=== PATIENT | female | born 1985 | race American Indian/Alaskan Native ===

== ENCOUNTER 2021-12-30 23:05 | Emergency (ER) | payer MEDICAID ==
[~2021-12-30] VITALS: Ht 165.1 cm; Wt 83.0 kg
[2021-12-31 01:18] LABS: Basophils # (auto) 0.1 10 ^3/uL (0-0.2); Basophils % (auto) 1.1 % (0.0-2.0); Eosinophils # (auto) 0.1 10 ^3/uL (0-0.8); Eosinophils % (auto) 1.6 % (0.0-7.0); Hematocrit 35.4 % (36.0-46.0); Hemoglobin 11.7 g/dL (12.2-16.2); Lymphocytes # (auto) 2.2 10 ^3/uL (0.4-5.4); Mean Corpuscular Hemoglobin 26.2 pg (28.0-32.0); Mean Corpuscular Hgb Conc. 32.9 g/dL (32.0-36.0); Mean Corpuscular Volume 79.5 fL (80.0-100.0); Monocytes # (auto) 0.5 10 ^3/uL (0-1.3); Monocytes % (auto) 7.3 % (0.0-12.0); Neutrophils # (auto) 4.3 10 ^3/uL (1.6-8.6); Nucleated Red Blood Cells % 0.1 %; Red Blood Cells 4.45 10^6/uL (4.0-5.20); Red Cell Distribution Width 17.1 % (11.8-14.3); White Blood Cell 7.2 10^3/uL (4.4-10.8)
[2021-12-31 01:29] LABS: INR 1.05 (0.9-1.15); Partial Thromboplastin Time 29.2 sec (23.6-33.0)
[2021-12-31 01:35] LABS: Calcium 8.4 mg/dL (8.5-10.1); Potassium 3.8 mmol/L (3.5-5.1)
[2021-12-31 01:39] LABS: Albumin 3.8 g/dL (3.4-5.0); BUN/Creatinine Ratio 15.1
[2021-12-31 01:41] LABS: Bilirubin, Total 0.6 mg/dL (0.2-1.0)
[2021-12-31 03:16] VITALS: BP 101/60
== END 2021-12-31 16:22 | disposition home or self-care (01) ==
LOC: ER 23:05
DX: R00.2 Palpitations (principal); R07.89 Other chest pain; Z20.822 Contact with and (suspected) exposure to COVID-19
CPT/HCPCS: 36415; 71045; 80053; 83735; 83880; 84443; 84484; 84702; 85025; 85379; 85610; 85730; 93005

== ENCOUNTER 2024-02-13 19:25 | Inpatient (IN) | payer MEDICAID ==
[~2024-02-13] VITALS: Ht 167.6 cm; Wt 89.0 kg
[2024-02-13 20:25] LABS: Urine Bacteria None Seen /hpf (None Seen)
[2024-02-13 20:38] LABS: Urine Blood Negative /uL (Negative); Urine Clarity Clear (Clear); Urine Color Yellow (Yellow); Urine Mucus FEW (None Seen); Urine Protein, UAD TRACE (Negative); Urine Specific Gravity 1.028 (1.001-1.035); Urine Urobilinogen 3 mg/dL (Negative); Urine WBC 7 /hpf (0 - 5)
[2024-02-13 21:17] LABS: Basophils # (auto) 0.1 10 ^3/uL (0-0.2); Basophils % (auto) 0.8 % (0.0-2.0); Eosinophils # (auto) 0.2 10 ^3/uL (0-0.8); Eosinophils % (auto) 2.3 % (0.0-7.0); Hematocrit 37.5 % (36.0-46.0); Hemoglobin 12.6 g/dL (12.2-16.2); Mean Corpuscular Hemoglobin 30.3 pg (28.0-32.0); Mean Corpuscular Hgb Conc. 33.6 g/dL (32.0-36.0); Mean Corpuscular Volume 90.2 fL (80.0-100.0); Monocytes # (auto) 0.6 10 ^3/uL (0-1.3); Monocytes % (auto) 7.2 % (0.0-12.0); Neutrophils # (auto) 5.1 10 ^3/uL (1.6-8.6); Neutrophils % (auto) 64.7 % (37.0-80.0); Nucleated Red Blood Cells % 0.1 %; Platelet Count (auto) 243 10^3/uL (140-450); Red Blood Cells 4.16 10^6/uL (4.0-5.20); Red Cell Distribution Width 13.8 % (11.8-14.3); White Blood Cell 7.9 10^3/uL (4.4-10.8)
[2024-02-13 21:37] LABS: Alanine Aminotransferase 20 U/L (7-40); Albumin 4.1 g/dL (3.2-4.8); Alkaline Phosphatase 60 U/L (46-116); Anion Gap 5 (5-15); Aspartate Aminotransferase 20 U/L (13-40); BUN/Creatinine Ratio 15.2 (10.0-20.0); Bilirubin, Total 0.8 mg/dL (0.2-1.0); Blood Urea Nitrogen 10 mg/dL (9-23); Calcium 9.6 mg/dL (8.7-10.4); Carbon Dioxide 28 mmol/L (20-30); Chloride 107 mmol/L (98-107); Glucose 89 mg/dL (74-106); Potassium 3.5 mmol/L (3.5-5.1); Sodium 140 mmol/L (136-145); Total Protein 6.9 g/dL (5.7-8.2)
[2024-02-13 21:47] LABS: Lipase 30 U/L (12-53)
[2024-02-14] MEDS ORDERED: NAP500T GT (02:38)
[2024-02-14 06:17] VITALS: RESP 16; O2SAT 99
[2024-02-14 08:18] VITALS: PULSE 95; RESP 18; O2SAT 95
[2024-02-14] MEDS: SODIUM CHLORIDE 0.9% 1,000 ML IV SCH (08:45)
[2024-02-14] MEDS ORDERED: POLYETHYLENE GLYCOL 17 GM PWDR PO PRN (08:45)
[2024-02-14] MEDS ORDERED: DOCUSATE SOD 100 MG CAP PO PRN (08:45)
[2024-02-14] MEDS: MORPHINE SULFATE INJ 2 MG/ml SYRG IV PRN (09:25)
[2024-02-14] MEDS: POLYETHYLENE GLYCOL 17 GM PWDR PO ONE (09:26)
[2024-02-14] MEDS ORDERED: NITROGLYCERIN 0.4 MG SL TAB SL PRN (10:45)
[2024-02-14 16:50] VITALS: BP 106/61; PULSE 70; RESP 20; TEMP 98.4; O2SAT 98
[2024-02-14 16:55] VITALS: PULSE 70; RESP 20; O2SAT 98
[2024-02-14 20:00] VITALS: PULSE 66; RESP 20; O2SAT 97
[2024-02-14] MEDS: HYDROcodone-ACET 5/325MG TAB PO PRN (20:12)
[2024-02-14 21:00] VITALS: BP 90/68; PULSE 66; RESP 20; TEMP 97.5; O2SAT 97
[2024-02-15] VITALS (9 sets, daily range): BP systolic 88–123; BP diastolic 45–84; PULSE 51–64; RESP 16–20; TEMP 97.8–98.2; O2SAT 96–98
[2024-02-15 06:28] LABS: Basophils # (auto) 0.1 10 ^3/uL (0-0.2); Basophils % (auto) 1.4 % (0.0-2.0); Eosinophils # (auto) 0.2 10 ^3/uL (0-0.8); Eosinophils % (auto) 3.4 % (0.0-7.0); Hematocrit 37.4 % (36.0-46.0); Hemoglobin 12.4 g/dL (12.2-16.2); Lymphocytes # (auto) 1.8 10 ^3/uL (0.4-5.4); Mean Corpuscular Hemoglobin 30.2 pg (28.0-32.0); Mean Corpuscular Hgb Conc. 33.3 g/dL (32.0-36.0); Mean Corpuscular Volume 90.8 fL (80.0-100.0); Monocytes # (auto) 0.4 10 ^3/uL (0-1.3); Monocytes % (auto) 6.2 % (0.0-12.0); Neutrophils # (auto) 3.3 10 ^3/uL (1.6-8.6); Nucleated Red Blood Cells % 0.5 %; Platelet Count (auto) 214 10^3/uL (140-450); Red Blood Cells 4.12 10^6/uL (4.0-5.20); Red Cell Distribution Width 13.8 % (11.8-14.3); White Blood Cell 5.8 10^3/uL (4.4-10.8)
[2024-02-15 06:47] LABS: Alanine Aminotransferase 16 U/L (7-40); Albumin 3.6 g/dL (3.2-4.8); Alkaline Phosphatase 50 U/L (46-116); Anion Gap 6 (5-15); Aspartate Aminotransferase 16 U/L (13-40); BUN/Creatinine Ratio 10.9 (10.0-20.0); Blood Urea Nitrogen 7 mg/dL (9-23); Calcium 8.4 mg/dL (8.7-10.4); Carbon Dioxide 24 mmol/L (20-30); Chloride 109 mmol/L (98-107); Glucose 78 mg/dL (74-106); Potassium 3.9 mmol/L (3.5-5.1); Sodium 139 mmol/L (136-145)
[2024-02-15 06:48] LABS: Bilirubin, Total 1.1 mg/dL (0.2-1.0); Total Protein 6.1 g/dL (5.7-8.2)
[2024-02-15] MEDS: SODIUM CHLORIDE 0.9% 1,000 ML IV SCH (13:16)
[2024-02-15 17:23] LABS: Amphetamine Screen, Urine Neg (NEGATIVE); Barbiturate Scree,Urine Neg (NEGATIVE); Benzodiazephine Screen, Urine Neg (NEGATIVE); Cocaine Screen, Urine Neg (NEGATIVE)
[2024-02-15 17:24] LABS: Cannabinoid Screen, Urine Neg (NEGATIVE); Opiate Scree,Urine Neg (NEGATIVE); Phencyclidine Screen, Urine Neg (NEGATIVE)
[2024-02-15] MEDS: ONDANSETRON HCL 4 MG/2 ML VIAL IV PRN (19:58)
[2024-02-16 01:00] VITALS: BP 99/52; PULSE 53; RESP 22; TEMP 98.1; O2SAT 98
[2024-02-16 05:00] VITALS: BP 97/61; PULSE 62; RESP 20; TEMP 97.8; O2SAT 96
[2024-02-16] MEDS: GADOTERATE MEG 10 MMOL/20ml INJ (0.5MMOL/ml) IV ONE (07:12)
[2024-02-16 08:56] VITALS: BP 98/58; PULSE 67; RESP 16; TEMP 98.3; O2SAT 97
[2024-02-16 12:46] VITALS: BP 116/61; PULSE 58; RESP 16; TEMP 97.9; O2SAT 97
[2024-02-16 16:57] VITALS: BP 91/55; PULSE 62; RESP 18; TEMP 98.2; O2SAT 96
[2024-02-16 21:00] VITALS: BP 100/54; PULSE 69; RESP 17; TEMP 97.5; O2SAT 96
[2024-02-17 05:00] VITALS: BP 90/53; PULSE 60; RESP 16; TEMP 97.7; O2SAT 98
[2024-02-17] MEDS: SODIUM CHLORIDE 0.9% 1,000 ML IV ONE (08:48)
[2024-02-17 08:54] VITALS: BP 84/44; PULSE 59; RESP 16; TEMP 98.8; O2SAT 98
[2024-02-17 08:56] LABS: Basophils # (auto) 0 10 ^3/uL (0-0.2); Basophils % (auto) 0.7 % (0.0-2.0); Eosinophils # (auto) 0.2 10 ^3/uL (0-0.8); Eosinophils % (auto) 2.4 % (0.0-7.0); Hematocrit 40.5 % (36.0-46.0); Hemoglobin 13.6 g/dL (12.2-16.2); Lymphocytes # (auto) 1.3 10 ^3/uL (0.4-5.4); Lymphocytes % (auto) 18.2 % (10.0-50.0); Mean Corpuscular Hemoglobin 30.4 pg (28.0-32.0); Mean Corpuscular Hgb Conc. 33.7 g/dL (32.0-36.0); Mean Corpuscular Volume 90.2 fL (80.0-100.0); Monocytes # (auto) 0.4 10 ^3/uL (0-1.3); Monocytes % (auto) 5.4 % (0.0-12.0); Neutrophils # (auto) 5.2 10 ^3/uL (1.6-8.6); Neutrophils % (auto) 73.3 % (37.0-80.0); Nucleated Red Blood Cells % 0.1 %; Platelet Count (auto) 220 10^3/uL (140-450); Red Blood Cells 4.49 10^6/uL (4.0-5.20); Red Cell Distribution Width 13.9 % (11.8-14.3); White Blood Cell 7.1 10^3/uL (4.4-10.8)
[2024-02-17 09:04] LABS: Alanine Aminotransferase 27 U/L (7-40); Alkaline Phosphatase 66 U/L (46-116); Anion Gap 1 (5-15); Aspartate Aminotransferase 27 U/L (13-40); BUN/Creatinine Ratio 14.1 (10.0-20.0); Blood Urea Nitrogen 9 mg/dL (9-23); Calcium 9.3 mg/dL (8.7-10.4); Carbon Dioxide 28 mmol/L (20-30); Chloride 106 mmol/L (98-107); Glucose 101 mg/dL (74-106); Potassium 3.9 mmol/L (3.5-5.1); Sodium 135 mmol/L (136-145); Total Protein 6.9 g/dL (5.7-8.2)
[2024-02-17 09:15] VITALS: BP 98/59; PULSE 66
[2024-02-17 12:54] VITALS: BP 110/67; PULSE 75; RESP 18; TEMP 98.1; O2SAT 98
[2024-02-17 13:10] VITALS: TEMP 36.7
== END 2024-02-17 14:30 | disposition home or self-care (01) | DRG 254 ==
LOC: ER 19:25 → OVERFLOW 02-14 10:36 → WEST WING 02-14 16:02
PROVIDERS: ADMIT Nurse Practitioner Family; ATTEND Family Medicine
DX: K59.01 Slow transit constipation (principal); I95.9 Hypotension, unspecified; E66.9 Obesity, unspecified; F17.200 Nicotine dependence, unspecified, uncomplicated; N83.201 Unspecified ovarian cyst, right side; Z97.5 Presence of (intrauterine) contraceptive device; Z82.3 Family history of stroke; Z82.49 Family history of ischemic heart disease and other diseases of the circulatory system; Z68.31 Body mass index [BMI] 31.0-31.9, adult
CPT/HCPCS: 36415; 73723; 74176; 76705; 76856; 80053; 80307; 81001; 83690; 84484; 84702; 85025; 93306; G0378; J2405